=== PATIENT | male | born 1995 | race Caucasian/White ===

== ENCOUNTER → 2019-02-03 | Outpatient (REF) | payer SELFPAY ==
[2019-02-03 13:16] LABS: SEMEN APPEARANCE OPAQUE (OPAQUE); SEMEN VISCOSITY LIQUID (LIQUID); SEMEN VOLUME 4.5 ml (2.0-5.0); SPERM CONCENTRATION 9.3 M/ml (>=15.0); WBC CONCENTRATION >1 M/ml (<=1 M/ml)
== END ==
LOC: M LAB REF 13:08
PROVIDERS: ATTEND Obstetrics & Gynecology
DX: Z31.41 Encounter for fertility testing (principal)

== ENCOUNTER 2019-05-21 12:13 | Emergency (ER) | payer OTHER, SELFPAY ==
[~2019-05-21] VITALS: Ht 185.4 cm; Wt 138.6 kg
[2019-05-21 12:51] LABS: BASO # 0.1 10^3/uL (0.0-0.2); BASO % 0.8 % (0.0-1.0); EOS # 0.2 10^3/uL (0.0-0.5); EOS % 3.5 % (0.0-3.0); HEMOGLOBIN 16.3 g/dl (13.5-17.5); LYMPH # 2.2 10^3/uL (1.5-5.0); LYMPH % 35.2 % (24.0-44.0); MEAN CORPUSCULAR HEMOGLOBIN 30.6 pg (27.0-33.0); MEAN CORPUSCULAR HGB CONC 34.7 g/dl (32.0-36.5); MEAN CORPUSCULAR VOLUME 88.2 fl (80.0-96.0); MONO # 0.7 10^3/uL (0.0-0.8); MONO % 10.6 % (0.0-5.0); NEUTROPHILS # 3.1 10^3/uL (1.5-8.5); NEUTROPHILS % 49.7 % (36.0-66.0); PLATELET COUNT, AUTOMATED 230 10^3/uL (150-450); RED BLOOD COUNT 5.33 10^6/uL (4.30-6.10); WHITE BLOOD COUNT 6.3 10^3/uL (4.0-10.0)
[2019-05-21 13:11] LABS: BLOOD UREA NITROGEN 14 MG/DL (7-18); CALCIUM LEVEL 9.4 MG/DL (8.5-10.1); CARBON DIOXIDE LEVEL 33 MEQ/L (21-32); CHLORIDE LEVEL 103 MEQ/L (98-107); CREATININE FOR GFR 0.92 MG/DL (0.70-1.30); GLOMERULAR FILTRATION RATE > 60.0 (>60); GLUCOSE, FASTING 92 MG/DL (70-100); POTASSIUM SERUM 4.8 MEQ/L (3.5-5.1); SODIUM LEVEL 139 MEQ/L (136-145)
[2019-05-21 13:13] LABS: ALBUMIN 4.5 GM/DL (3.2-5.2); BILIRUBIN,DIRECT 0.3 MG/DL (0.0-0.2); BILIRUBIN,TOTAL 0.8 MG/DL (0.2-1.0)
[2019-05-21] MEDS ORDERED: KETOROLAC 30 MG/ML 1ML VIAL IV ONE (15:30)
[2019-05-21] MEDS ORDERED: NS 1,000 ML IV ONE (15:30)
[2019-05-21] MEDS ORDERED: ONDANSETRON 4MG/2ML VIAL IV ONE (15:30)
[2019-05-21] MEDS ORDERED: ISOVUE-370 76% 100ML VIAL As Ordered ONE (15:34)
--- NOTE | 2019-05-21 16:40 | REP ---
CT of the abdomen pelvis with IV contrast, without bowel contrast for right lower quadrant pain and nausea: There are no comparisons. The visualized lung arambula are unremarkable. The hepatic parenchyma, gallbladder, pancreas, spleen, adrenals, kidneys and abdominal aorta are unremarkable. There are no renal calculi. There is no hydronephrosis. There is no perinephric stranding. There is no periaortic adenopathy or mass. There is no bowel distension or obstruction. There is no ascites. Pelvis: The appendix has a normal appearance. The wall of the terminal ileum is radiolucent. This is nonspecific. Follow-up is recommended. This could represent focal acute enteritis versus terminal ileitis. There is no pelvic ascites or adenopathy. The bladder is unremarkable. The pelvic bowel loops are otherwise unremarkable. Impression: The appendix has a normal appearance. The wall of the terminal ileum is radiolucent. This is nonspecific and could represent enteritis or terminal ileitis. Follow-up is recommended. Otherwise, negative CT of the abdomen and pelvis. Electronically Signed by Kristofer Dugan MD 05/21/2019 04:31 P
[2019-05-21] MEDS ORDERED: ONDA4TAB6 PO (17:05)
[2019-05-21 17:21] VITALS: BP 128/81
--- NOTE | 2019-05-24 09:32 | ED PDOC ---
Post-Departure Follow-Up certified letter sent to pt re formal report of ct abd - need fu. emily pcp name and fax to pcp. if no pcp refer to gme Balta Hammer MD May 24, 2019 09:32
== END 2019-05-21 17:37 | disposition home or self-care (01) ==
LOC: M ED 12:13
DX: R11.2 Nausea with vomiting, unspecified (principal); R19.7 Diarrhea, unspecified
CPT/HCPCS: 74177; 80048; 80076; 81001; 83690; 85025; 96361; 96374; 96375; 99284; J1885; J2405; Q9967

== ENCOUNTER 2021-03-19 10:15 | Observation (INO) | payer OTHER ==
[~2021-03-19] VITALS: Ht 185.4 cm; Wt 137.5 kg
[~2021-03-19 10:15] MED LIST: ONDA4TAB6 PO
[2021-03-19] MEDS ORDERED: SERT-141 PO (10:43)
[2021-03-19] MEDS ORDERED: BUPR150T12 PO (10:43)
[2021-03-19] MEDS ORDERED: MULT-90 PO (10:43)
[2021-03-19] MEDS ORDERED: PRAZ2CAP PO (10:47)
[2021-03-19] MEDS ORDERED: CHARCOAL ACTIVATED LIQUID 25 GM/120 ML BTL PO ONE (11:10)
[2021-03-19 11:58] LABS: BASO % 0.7 % (0.0-1.0); EOS # 0.2 10^3/uL (0.0-0.5); EOS % 2.8 % (0.0-3.0); HEMATOCRIT 48.9 % (42.0-52.0); HEMOGLOBIN 16.1 g/dl (13.5-17.5); LYMPH # 1.7 10^3/uL (1.5-5.0); MEAN CORPUSCULAR HEMOGLOBIN 29.7 pg (27.0-33.0); MEAN CORPUSCULAR HGB CONC 32.9 g/dl (32.0-36.5); MEAN CORPUSCULAR VOLUME 90.2 fl (80.0-96.0); MONO # 0.5 10^3/uL (0.0-0.8); MONO % 8.6 % (2.0-8.0); NEUTROPHILS % 55.7 % (36.0-66.0); PLATELET COUNT, AUTOMATED 211 10^3/uL (150-450); RED BLOOD COUNT 5.42 10^6/uL (4.30-6.10); WHITE BLOOD COUNT 5.4 10^3/uL (4.0-10.0)
[2021-03-19 12:42] LABS: AMPHETAMINES LEVEL URINE NEGATIVE (NEGATIVE); BARBITURATES URINE NEGATIVE (NEGATIVE); BENZODIAZEPINES URINE NEGATIVE (NEGATIVE); CANNABINOIDS URINE POSITIVE (NEGATIVE); COCAINE METABOLITE URINE NEGATIVE (NEGATIVE); METHADONE URINE NEGATIVE (NEGATIVE); OPIATES URINE NEGATIVE (NEGATIVE); PHENCYCLIDINE URINE NEGATIVE (NEGATIVE)
[2021-03-19 12:43] LABS: ACETAMINOPHEN LEVEL < 2.0 UG/ML (10.0-30.0); ALBUMIN 4.3 GM/DL (3.2-5.2); ALT/SGPT 47 U/L (12-78); BILIRUBIN,DIRECT 0.2 MG/DL (0.0-0.2); BILIRUBIN,TOTAL 0.9 MG/DL (0.2-1.0); BLOOD UREA NITROGEN 12 MG/DL (7-18); CALCIUM LEVEL 9.2 MG/DL (8.5-10.1); CARBON DIOXIDE LEVEL 31 MEQ/L (21-32); CHLORIDE LEVEL 103 MEQ/L (98-107); CREATININE FOR GFR 0.94 MG/DL (0.70-1.30); ETHYL ALCOHOL (ETHANOL) 0.003 % (0.000-0.010); GLOMERULAR FILTRATION RATE > 60.0 (>60); GLUCOSE, FASTING 116 MG/DL (70-100); POTASSIUM SERUM 4.6 MEQ/L (3.5-5.1); SALICYLATE LEVEL < 1.7 MG/DL (5.0-30.0); SODIUM LEVEL 137 MEQ/L (136-145)
[2021-03-19 12:49] LABS: RSV AMPLIFICATION NEGATIVE (NEGATIVE)
[2021-03-19] MEDS ORDERED: HOME MED LIST COMPLETE! XX SCH (13:05)
[2021-03-19] MEDS ORDERED: ZOLO100T PO (13:05)
[2021-03-19] MEDS ORDERED: ALBUTEROL SULFATE 2.5 MG/0.5 ML INH NEB SOLN INH PRN (13:30)
[2021-03-19] MEDS ORDERED: diphenhydrAMINE 50MG/ML VIAL (J1200) IV PRN (13:30)
[2021-03-19] MEDS ORDERED: EPINEPHrine INJ 1 MG/ML 1ML AMP IM PRN (13:30)
[2021-03-19] MEDS ORDERED: ALBUTEROL 90 MCG/ACT 8GM HFA INHALER INH PRN (13:30)
[2021-03-19] MEDS ORDERED: methylPREDNISolone 125MG 2ML VIAL IV PRN (13:30)
[2021-03-19] MEDS ORDERED: CASIRIVIMAB/IMDEVIMAB 1,200 MG in NS 250 ML IV ONE (16:00)
[2021-03-19] MEDS ORDERED: NS 1,000 ML IV SCH (16:00)
[2021-03-19 17:30] VITALS: BP 143/81
[2021-03-19 19:02] LABS: HEMATOCRIT 49.5 % (42.0-52.0); HEMOGLOBIN 16.8 g/dl (13.5-17.5); MEAN CORPUSCULAR HEMOGLOBIN 30.1 pg (27.0-33.0); MEAN CORPUSCULAR HGB CONC 33.9 g/dl (32.0-36.5); MEAN CORPUSCULAR VOLUME 88.6 fl (80.0-96.0); PLATELET COUNT, AUTOMATED 209 10^3/uL (150-450); RED BLOOD COUNT 5.59 10^6/uL (4.30-6.10); WHITE BLOOD COUNT 6.2 10^3/uL (4.0-10.0)
[2021-03-19 19:37] LABS: ALBUMIN 4.5 GM/DL (3.2-5.2); ALT/SGPT 49 U/L (12-78); BILIRUBIN,TOTAL 0.6 MG/DL (0.2-1.0); BLOOD UREA NITROGEN 12 MG/DL (7-18); CALCIUM LEVEL 9.5 MG/DL (8.5-10.1); CARBON DIOXIDE LEVEL 29 MEQ/L (21-32); CHLORIDE LEVEL 104 MEQ/L (98-107); CREATININE FOR GFR 0.93 MG/DL (0.70-1.30); GLOMERULAR FILTRATION RATE > 60.0 (>60); GLUCOSE, FASTING 88 MG/DL (70-100); POTASSIUM SERUM 4.2 MEQ/L (3.5-5.1); SODIUM LEVEL 139 MEQ/L (136-145); TOTAL PROTEIN 8.2 GM/DL (6.4-8.2)
[2021-03-19 22:00] VITALS: BP 110/61
[2021-03-20 02:00] VITALS: BP 137/71
[2021-03-20 06:00] VITALS: BP 123/78
== END 2021-03-20 09:34 | disposition home or self-care (01) ==
LOC: M ED 10:15 → M ED INP 13:13 → ENRESERV 14:59 → M MSPAV 17:28
PROVIDERS: ADMIT Internal Medicine; ATTEND Internal Medicine
DX: T43.291A Poisoning by other antidepressants, accidental (unintentional), initial encounter (principal); Y92.89 Other specified places as the place of occurrence of the external cause; U07.1 COVID-19; F43.10 Post-traumatic stress disorder, unspecified; F41.9 Anxiety disorder, unspecified; F32.9 Major depressive disorder, single episode, unspecified; G47.33 Obstructive sleep apnea (adult) (pediatric); Z79.899 Other long term (current) drug therapy
CPT/HCPCS: 36415; 80053; 80143; 80307; 82077; 82550; 84443; 85025; 85027; 87631; 93005; 93041; 94760; 99285; G0378

== ENCOUNTER → 2024-08-15 | Outpatient (CLI) | payer OTHER ==
[~2024-08-15] MED LIST changes: +BUPR150T12 PO; +MULT-90 PO; +ONDA-282 PO; -ONDA4TAB6 PO; +PRAZ2CAP PO; +SERT-141 PO; +ZOLO100T PO
== END ==
LOC: M PLAIMG 13:30
PROVIDERS: ATTEND Student in an Organized Health Care Education/Training Program
DX: M79.672 Pain in left foot (principal)

== ENCOUNTER → 2024-10-08 | Outpatient (CLI) | payer OTHER | LOC: M SLEEP 20:00 | PROVIDERS: ATTEND Family Medicine | DX: G47.33 Obstructive sleep apnea (adult) (pediatric) (principal) ==

== ENCOUNTER 2025-03-24 23:44 | Emergency (ER) | payer OTHER ==
[~2025-03-24] VITALS: Ht 188 cm; Wt 136.4 kg
[2025-03-25] MEDS: LIDOCAINE 1% MDV 20 ML VIAL IM ONE (01:10)
[2025-03-25] MEDS: TETANUS/DIPHTH/ACEL. PERTUSSIS 0.5 ML SYR IM.IMMUN ONE (01:35)
[2025-03-25 01:43] VITALS: BP 132/76; TEMP 97.8; O2SAT 95
== END 2025-03-25 01:58 | disposition home or self-care (01) ==
LOC: M ED 23:44
DX: S61.412A Laceration without foreign body of left hand, initial encounter (principal); W26.0XXA Contact with knife, initial encounter; Y92.9 Unspecified place or not applicable; Y93.89 Activity, other specified; Y99.9 Unspecified external cause status; Z79.899 Other long term (current) drug therapy